=== PATIENT | male | born 1955 | race Caucasian/White ===

== ENCOUNTER 2019-02-27 06:00 | Day surgery (SDC) | payer MEDICARE, OTHER ==
[~2019-02-27] VITALS: Ht 170.2 cm; Wt 78.6 kg
[~2019-02-27 06:00] MED LIST: SODIUM CHLORIDE 0.9% 1,000 ML ONE
[2019-02-27] MEDS ORDERED: SODIUM CHLORIDE 0.9% 1,000 ML IV ONE (06:30)
[2019-02-27] MEDS ORDERED: FentaNYL CITRATE-PF 100 MCG/2 ML VIAL ONE (08:02)
[2019-02-27] MEDS ORDERED: MIDAZOLAM HCL 2 MG/2 ML VIAL ONE (08:02)
[2019-02-27] MEDS ORDERED: MethylPREDNISolone SOD SUCC 125 MG/2 ML VIAL IVP ONE (08:30)
[2019-02-27] MEDS ORDERED: BENZOCAINE 20% 50 MCG/SPRAY 57 GM ONE (17:19)
[2019-02-27] MEDS ORDERED: ALBUTEROL SULFATE 2.5 MG/0.5 ML NEB SOLUTION NEB ONE (17:19)
[2019-02-27] MEDS ORDERED: LIDOCAINE 2% 30 ML JELLY ONE (17:19)
[2019-02-27] MEDS ORDERED: LIDOCAINE 4% 50 ML SOLUTION ONE (17:19)
[2019-02-27] MEDS ORDERED: OXYGEN THERAPY IH SCH (20:00)
== END 2019-02-27 09:55 | disposition home or self-care (01) ==
LOC: SURGERY 06:00
PROVIDERS: ATTEND Internal Medicine Critical Care Medicine
DX: R05 Cough (principal); R91.1 Solitary pulmonary nodule; J98.8 Other specified respiratory disorders; J34.89 Other specified disorders of nose and nasal sinuses; B37.0 Candidal stomatitis; J38.4 Edema of larynx
CPT/HCPCS: 31623; 31624; 71045; 87070; 87101; 87206; 87220; J2250; J2930; J3010; J7030; 87015; 87205; 88108; 88312